=== PATIENT | male | born 1985 | race African-American/Black ===

== ENCOUNTER 2019-12-29 08:47 | Emergency (ER) | payer SELFPAY ==
[2014-05-26 11:38] VITALS: BP 134/67
[~2019-12-29] VITALS: Ht 170.2 cm; Wt 75.0 kg
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
== END 2019-12-29 10:12 | disposition home or self-care (01) ==
LOC: ER 08:47
DX: M54.5 Low back pain (principal); R07.89 Other chest pain; G89.11 Acute pain due to trauma; F17.200 Nicotine dependence, unspecified, uncomplicated; V49.88XA Car occupant (driver) (passenger) injured in other specified transport accidents, initial encounter; Y92.488 Other paved roadways as the place of occurrence of the external cause; Y93.89 Activity, other specified; Y99.8 Other external cause status
CPT/HCPCS: 71045; 72100; 99284